=== PATIENT | male | born 1980 | race Caucasian/White ===

== ENCOUNTER 2024-12-23 08:30 | Emergency (ER) | payer OTHER, SELFPAY ==
[2024-12-23 08:34] VITALS: BP 140/81
[2024-12-23 08:47] VITALS: BMI 26.6
[2024-12-23] MEDS: MOTRIN 400 MG PO (09:02)
[2024-12-23] MEDS: TYLENOL 1000 MG PO (09:02)
[2024-12-23] MEDS: ADACEL 0.5 ML IM (09:03)
--- NOTE | 2024-12-23 09:26 | ED.GENMED ---
History of Present Illness
General
Chief Complaint: Musculo-Skeletal Complaint
Source: patient
Exam Limitations: none
Time Seen by Provider: 12/23/24 08:44
Nursing documentation reviewed up to this point in time: agreed with
History of Present Illness
History of Present Illness:
Patient presents to ED secondary to left ring finger injury, while he was at work this morning. Patient states that his finger got caught, as he was coming off the truck. Denies any other injury. Patient presents with what appears to be degloving
injury. Patient unsure of his last tetanus vaccination. Denies loss of sensation.
Past History
Past History
ED Past Medical History: Other (Proteinuria)
ED Past Surgical History: None
Social History
Tobacco: Non-smoker
Alcohol: None
Drug: None
Living: with family
Review of Systems
Review of Systems
Allergies reviewed?: Yes
All Other Systems: ROS reviewed and negative except as documented in HPI and ROS
Constitutional: Reports no symptoms; Denies fever
Musculoskeletal: Reports other (Finger pain with laceration)
Skin: Reports other (Finger laceration)
Neurological: Reports no symptoms
Phy Exam
Physical Exam
Physical Exam:
Physical Exam
General: mild distress, not acutely ill. afebrile
Head: nc/at. eomi
Neck: supple. normal range of motion
Neuro: alert and oriented x 3. no focal neurological deficits
Skin: no rash
Psychiatric: well kept. interactive and cooperative
Extremities: left 4th finger - laceration noted, circumstantial, around proximal phalanx, with complete degloving of the superficial layer of skin. mild deformity noted over DIP. ring removed successfully.
Course
Orders/Labs/Results
Orders:
Orders
12/23/24 08:54
Acetaminophen [Tylenol] 1,000 mg PO NOW STA
Ibuprofen [Motrin] 400 mg PO NOW STA
Tetanus/Diphth/Acelpertussis [Adacel] 0.5 ml IM .ONCE ONE
12/23/24 08:56
CR Finger(s)/thumb Min 2 Vw Lt Urgent
Comment:
Reason For Exam: trauma
Indicate Which Finger:: Ring Finger
12/23/24 08:58
CeFAZolin 1 GRAM [Ancef] 1 gram in 5 ml IV NOW
12/23/24 09:58
Diphenhydramine [Benadryl] 25 mg IV NOW STA
Diphenhydramine [Benadryl] 50 mg .ROUTE .STK-MED ONE
Vital Signs
Initial and Last Documented VS:
Initial Vital Signs
Temp Pulse Resp BP Pulse Ox
98.0 F 105 16 140/81 98
12/23/24 08:34 12/23/24 08:34 12/23/24 08:34 12/23/24 08:34 12/23/24 08:34
Last Documented Vital Signs
Temp Pulse Resp BP Pulse Ox
98.0 F 105 16 140/81 98
12/23/24 08:34 12/23/24 08:34 12/23/24 08:34 12/23/24 08:34 12/23/24 09:26
Procedures
Laceration Closure
Left Fourth Finger:
Status of Wound: dirty
Size of Wound in cm: 6
Description of Wound Edges: surrounded by abrasion, flap-poorly vascularized and macerated
Preparation: cleaned with SurClens
Anesthesia: 1% Lidocaine
Wound exploration: extensive cleaning of contaminated wound
Type of Closure: single layer closure
Skin Closure Material: 5-0 nylon
Number of sutures: 9
MDM/Problems Addressed
MDM/Problems Addressed:
X-ray: No acute fracture nor foreign body noted.
Wound copiously irrigated after local anesthesia with lidocaine without epinephrine. De-gloved skin able to be placed over the affected finger and sutures loosely placed for approximation, at the recommendation of on-call orthopedic surgeon,
Liz, who is aware of patient viability in question, with persistent pallor appearance. Patient and spouse made aware of potential complications, in terms of tissue viability as well as finger mobility. Dr. Hill will follow-up with the
patient before the weekend for reevaluation. As patient developed rash with administration of Keflex in ED, he will be given Bactrim prophylactically until reevaluation.
*Pulse Oximetry
SaO2: 98
Oxygen Mode of Delivery: Room air
Patient hypoxic: no
*Critical Care Note
Total Time (30-74mins, 75-104mins- exclusive of procedures): Not Applicable
ED Attending Note
-
Portions of this chart may have been created with voice recognition software.� Occasional wrong word or��sound alike� substitutions may have occurred due to the inherent limitations of voice recognition software.
Discharge Plan
Departure
Patient Disposition: Home (Routine Discharge)
Date of Disposition: 12/23/24
Time of Disposition: 11:37
Patient with high blood pressure during this ER visit?: Yes
Condition: Fair
Discharge Problem:
Degloving injury of finger
Instructions: Stitches - ED (DC), Laceration
Prescriptions:
New
sulfamethoxazole-trimethoprim [Bactrim DS] 800-160 mg tablet
1 tab PO BID Qty: 10 0RF
Referrals:
Dipak Mckeon DO [Family Provider, Internal Medicine]
Chadwick Hill MD [Active, Orthopedics]
Activity Restrictions/Additional Instructions:
As discussed, please follow-up with referred hand surgeon for reevaluation this week. Your prescription has been sent electronically to [facility] pharmacy in [place]. Please start taking antibiotics, starting tomorrow morning.
Interventions
Interventions:
*Risk Screen - Suicide Last Done: 12/23/24 08:34
*General Assessment Last Done: 12/23/24 08:47
*Neglect/Abuse Screening Last Done: 12/23/24 08:34
*ED- Fall Risk Assessment Last Done: 12/23/24 08:47
*ED COVID-19 Vaccine History Last Done: 12/23/24 08:47
*Nursing Disposition Last Done: 12/23/24 11:38
ED-Musculoskeletal Assessment Last Done: 12/23/24 08:47
Discharge Date and Time
Discharge Date/Time: 12/23/24 11:55
Print Language: AFGHAN
[2024-12-23] MEDS: ANCEF 5 IV (09:30)
[2024-12-23] MEDS: BENADRYL 25 MG IV (10:06)
== END 2024-12-23 11:55 | disposition home or self-care (01) ==
LOC: EMR 08:30
PROVIDERS: EMERGENCY PHYSICIAN Emergency Medicine; FAMILY PHYSICIAN Internal Medicine Geriatric Medicine
DX: S61.215A Laceration without foreign body of left ring finger without damage to nail, initial encounter (principal); R03.0 Elevated blood-pressure reading, without diagnosis of hypertension; Z23 Encounter for immunization; W23.0XXA Caught, crushed, jammed, or pinched between moving objects, initial encounter; Y92.812 Truck as the place of occurrence of the external cause; Y99.0 Civilian activity done for income or pay
CPT/HCPCS: 99284; 96374; 96375; 12002; 90471; 73140; 90715

== ENCOUNTER 2024-12-24 09:43 | Emergency (ER) | payer OTHER, SELFPAY ==
[2024-12-24 09:45] VITALS: BP 160/98
--- NOTE | 2024-12-24 10:01 | ED.GENMED ---
History of Present Illness
<Paul Freedman PA-C - Last Filed: 12/24/24 10:38>
General
Chief Complaint: Skin Problem
Time Seen by Provider: 12/24/24 09:50
History of Present Illness
History of Present Illness:
44-year-old male returns to the emergency department for reevaluation of the left ring finger wound from a ring degloving injury. The wound was sutured in place yesterday and patient was given follow-up with orthopedics, he is scheduled to see hand
surgery tomorrow. They were concerned about the appearance of the wound today thus he came back to the ED for further evaluation. He is reporting intense pain in the finger and has taken Tylenol and ibuprofen without relief. Denies fevers, he
notes a strange odor as well when changing the bandage this morning
Past History
<Paul Freedman PA-C - Last Filed: 12/24/24 10:38>
Past History
ED Past Medical History: Other (Proteinuria)
ED Past Surgical History: None
Social History
Tobacco: Non-smoker
Alcohol: None
Drug: None
Living: with family
Review of Systems
<Paul Freedman PA-C - Last Filed: 12/24/24 10:38>
Review of Systems
Allergies reviewed?: Yes
All Other Systems: ROS reviewed and negative except as documented in HPI and ROS
Phy Exam
<Paul Freedman PA-C - Last Filed: 12/24/24 10:38>
Physical Exam
Physical Exam:
GEN: Well appearing, NAD, WDWN
HEENT: Oral mucosa moist, no scleral icterus
Cardiac: Regular rate
Lung: No respiratory distress, no tachypnea
MSK: No gross deformity or injuries
Skin: Good color, no pallor or jaundice, no rashes
Pale/dusky appearance to the distal aspect of the left ring finger, hypoesthesia noted but some sensation is intact to the finger pad, no capillary refill noted
Neuro: AO x3, moves all extremities freely
Psych: Calm, cooperative
Course
<Paul Freedman PA-C - Last Filed: 12/24/24 10:38>
Orders/Labs/Results
Orders:
Orders
12/24/24 09:59
Oxycodone [Roxicodone] 5 mg PO NOW STA
Vital Signs
Initial and Last Documented VS:
Initial Vital Signs
Temp Pulse Resp BP Pulse Ox
98.2 F 78 18 160/98 99
12/24/24 09:45 12/24/24 09:45 12/24/24 09:45 12/24/24 09:45 12/24/24 09:45
Last Documented Vital Signs
Temp Pulse Resp BP Pulse Ox
98.2 F 94 18 162/103 100
12/24/24 09:45 12/24/24 10:12 12/24/24 10:12 12/24/24 10:12 12/24/24 10:12
<Reese Pereira MD - Last Filed: 12/24/24 10:26>
Orders/Labs/Results
Orders:
Orders
12/24/24 09:59
Oxycodone [Roxicodone] 5 mg PO NOW STA
Vital Signs
Initial and Last Documented VS:
Initial Vital Signs
Temp Pulse Resp BP Pulse Ox
98.2 F 78 18 160/98 99
12/24/24 09:45 12/24/24 09:45 12/24/24 09:45 12/24/24 09:45 12/24/24 09:45
Last Documented Vital Signs
Temp Pulse Resp BP Pulse Ox
98.2 F 94 18 162/103 100
12/24/24 09:45 12/24/24 10:12 12/24/24 10:12 12/24/24 10:12 12/24/24 10:12
<Paul Freedman PA-C - Last Filed: 12/24/24 10:38>
MDM/Problems Addressed
MDM/Problems Addressed:
Case reviewed with hand surgery on-call, no further treatment needed at this time, likelihood that the tissue is nonviable but suitable for follow-up tomorrow. Wound irrigated and re dressed, will give opioids for pain
<Paul Freedman PA-C - Last Filed: 12/24/24 10:38>
*Pulse Oximetry
SaO2: 99
Oxygen Mode of Delivery: Room air
Patient hypoxic: no
*Critical Care Note
Total Time (30-74mins, 75-104mins- exclusive of procedures): Not Applicable
ED Attending Note
<Paul Freedman PA-C - Last Filed: 12/24/24 10:38>
-
Portions of this chart may have been created with voice recognition software.� Occasional wrong word or��sound alike� substitutions may have occurred due to the inherent limitations of voice recognition software.
<Reese Pereira MD - Last Filed: 12/24/24 10:26>
ED Attending Note
Patient seen and examined by attending physician: Yes
ED Attending Note:
Patient status post degloving injury yesterday, seen by myself yesterday with placement of sutures, for loose approximation, scheduled for an appointment with hand surgeon tomorrow afternoon, presents to ED for reevaluation, secondary to increased
pain despite taking Tylenol/Motrin, along with concern for skin color appearance along with 'foul odor'. Denies fever or chills. Denies new trauma.
4th finger: Sutures in place without bleeding or swelling, with continual pallor appearance. Patient able to flex and extend affected finger proximally, but range of motion DIP/PIP limited.
Discussed with on-call hand surgeon, Dr. Rausch, who feels that an appointment tomorrow as scheduled, is appropriate. No further recommendation provided. Patient will be given short course of pain medication for symptomatic control.
Discharge Plan
Departure
Patient Disposition: Home (Routine Discharge)
Date of Disposition: 12/24/24
Time of Disposition: 10:21
Patient with high blood pressure during this ER visit?: No
Discharge Problem:
Degloving injury of finger
Instructions: Wound Care (DC)
Prescriptions:
New
oxycodone-acetaminophen [Endocet] 5-325 mg tablet
1 tab PO Q6H PRN (Reason: Pain) Qty: 12 0RF
No Action
sulfamethoxazole-trimethoprim [Bactrim DS] 800-160 mg tablet
1 tab PO BID Qty: 10 0RF
Referrals:
Dipak Mckeon DO [Family Provider, Internal Medicine]
Activity Restrictions/Additional Instructions:
Change the bandage and gently wash the wound tomorrow
Follow up with Dr Hill as planned
Interventions
Interventions:
*Risk Screen - Suicide Last Done: 12/24/24 09:45
*General Assessment Last Done: 12/24/24 09:45
*Neglect/Abuse Screening Last Done: 12/24/24 09:45
*ED- Fall Risk Assessment Last Done: 12/24/24 10:15
*ED COVID-19 Vaccine History Last Done: 12/24/24 10:15
*Nursing Disposition Last Done: 12/24/24 10:26
ED-Skin Assessment Last Done: 12/24/24 10:26
Discharge Date and Time
Print Language: HONDURAN
[2024-12-24] MEDS: ROXICODONE 5 MG PO (10:10)
[2024-12-24 10:12] VITALS: BP 162/103; BMI 27.6
== END 2024-12-24 10:50 | disposition home or self-care (01) ==
LOC: EMR 09:43
PROVIDERS: EMERGENCY PHYSICIAN Emergency Medicine; FAMILY PHYSICIAN Internal Medicine Geriatric Medicine
DX: S61.315A Laceration without foreign body of left ring finger with damage to nail, initial encounter (principal); X58.XXXA Exposure to other specified factors, initial encounter
CPT/HCPCS: 99283

== ENCOUNTER 2024-12-29 06:11 | Day surgery (SDC) | payer OTHER, SELFPAY ==
[2024-12-26 10:44] LABS: Hematocrit 46.7 % (39.0-52.0); Hemoglobin 16.3 g/dL (13.0-18.0); Mean Corp Hgb Conc. 34.9 g/dL (33.0-37.0); Mean Corpuscular Volume 91.6 fL (80.0-94.0); Platelet Count 233 10^3/uL (130-400); Red Cell Dist. Width 12.1 % (11.5-14.5)
[2024-12-26 11:05] LABS: ALT (SGPT) 24 U/L (0-50); AST (SGOT) 31 U/L (17-59); Albumin 5.0 g/dl (3.5-5.0); Alkaline Phosphatase 63 U/L (38-126); Blood Urea Nitrogen 12 mg/dl (9-20); Calcium 10.1 mg/dl (8.4-10.2); Carbon Dioxide 23 mmol/L (22-30); Chloride 105 mmol/L (98-107); Glucose 116 mg/dl (70-99); Potassium 4.8 mmol/L (3.5-5.1); Sodium 137 mmol/L (135-145); Total Protein 8.1 g/dl (6.3-8.2); eGFR > 60.00
[2024-12-29] VITALS (10 sets, daily range): BP systolic 106–138; BP diastolic 69–84; BMI 27.4
[2024-12-29] MEDS: TYLENOL 1000 MG PO (09:41)
[2024-12-29] MEDS: CELEBREX 200 MG PO (09:41)
[2024-12-29] MEDS: NORMOSOL-R/PLASMALYTE-A 1000 IV (09:51)
== END 2024-12-29 14:41 | disposition home or self-care (01) ==
LOC: SDS 06:11
PROVIDERS: ATTENDING PHYSICIAN Orthopaedic Surgery Hand Surgery
DX: S61.205A Unspecified open wound of left ring finger without damage to nail, initial encounter (principal); I96 Gangrene, not elsewhere classified; W45.8XXA Other foreign body or object entering through skin, initial encounter
CPT/HCPCS: 11044; 15240; 36415; 80053; 85027